=== PATIENT | female | born 1980 | race African-American/Black ===

== ENCOUNTER 2017-04-25 00:18 | Inpatient (IN) | payer OTHER ==
[~2017-04-25] VITALS: Ht 152.4 cm; Wt 112.5 kg
--- NOTE | ~2017-04-25 | CR72 ---
[facility] A Service of [facility] [place] RADIOLOGY TEXT RESULTS PATIENT: ANABEL GUILLAUME LOCATION: [place] [address]- : [birth year] UNIT #: [id number] AGE: [address]: Eben Cantrell MD SEX: F ORDER DR: [id number] [facility] [address] [facility] [place], [place] [address] [id number] I MR#: [id number] #: [id number] NAME: ANABEL GUILLAUME : 1980 SEX: F STUDY DATE/TIME: 04/26/2017 12:05 UNIT: [facility] ROOM: [facility] STUDY DESCRIPTION: CR Chest Single View Portable Attending Physician: Blake Sullivan M.D. Ordering Physician: Ash Bright M.D. Primary Care Physician: Valdemar Espinosa Aprn MEDICAL IMAGING REPORT This report is preliminary unless electronic signature is present EXAM Portable chest radiograph. INDICATIONS Chest pain, shortness of breath and weakness for 3 days. Comparison is made to prior exam which was performed yesterday. FINDINGS Cardiomegaly and vascular congestion are unchanged when compared to yesterday's studies. No pneumothorax is identified. Trace bilateral pleural effusions are suspected. Dictated by... Chante Galvan M.D. THIS IS AN ELECTRONICALLY VERIFIED REPORT Chante Galvan M.D. at 04/27/2017 5:37 PM AFF/psc TD: 04/26/2017 22:03 JOB #: [id number] MEDICAL IMAGING REPORT Page 1 of 1 COPY
--- NOTE | ~2017-04-25 | DS ---
Unit #: [id number] #: [id number] Patient: BRISA GUILLAUME [id number] [address] [address] [id number] I MR#: [id number] NAME: BRISA GUILLAUME. ROOM: 547 Age: 36 Sex: F Admission Date: 04/25/2017 : 1980 Discharge Date: Attending Physician: Eben Cantrell M.D. Primary Care Physician: Valdemar Espinosa Aprn DISCHARGE SUMMARY PRIMARY DIAGNOSIS Acute hypercapnic respiratory failure. SECONDARY DIAGNOSES 1. Diabetes mellitus type 2. 2. Pulmonary edema, mild. 3. Non ST segment elevation myocardial infarction with highest troponin elevation of 0.19. 4. Chronic obstructive pulmonary disease with possible exacerbation. 5. Hypertension. 6. Peripheral artery disease. 7. Morbid obesity. 8. Obstructive sleep apnea. 9. Bipolar disorder. 10. Hypertriglyceridemia. HOSPITAL COURSE Ms. Brisa Guillaume was admitted by the emergency room at approximately 1 a.m. on April 25, for shortness of breath. Additionally, she had a glucose of 681. She had noted that she has been chronically short of breath since having a TN and stent placement in August 2016, but it was worse. In the emergency room, she received IV Lasix and IV Solu-Medrol as well as insulin to try to get her blood sugar down. She was given a therapeutic dose of Lovenox and some nitroglycerin paste. She had a CT angiogram of her chest done which showed no pulmonary embolism. Please see the report for other findings. The patient's initial ABG in the emergency room showed a pH of 7.316, pCO2 of 49, and pO2 of 399 on 100% FIO2 on BiPAP at 10/6 and this improved to an essentially ABG on BiPAP. One and a half hours later, the patient was able to be weaned off the BiPAP and continued IV diuresis. Consultation was obtained with Dr. Evans with cardiology for the elevated troponin and the pulmonary edema. Medications were adjusted. The patient was initially in the ICU, but was able to be transferred out on the morning of the . There was listed diagnoses from physicians seeing the patient on the of an acute exacerbation of COPD, although patient did not require any steroids and she did not have any bronchospasm or wheezing on my exam when I saw her for the first time on her day of discharge. As she had not required any steroids other than the first dose in the emergency room and I could not find any wheezing at discharge, I did not feel that additional steroids were indicated. In fact, they were relatively contraindicated due to her issues with her diabetes, hyperglycemia at admission, and morbid obesity. Cardiology felt the patient's coronary artery disease should continue to be medically managed and recommended followup with her regular investigator fraud. They also recommended cardiac rehab. Unit #: [id number] #: [id number] Patient: BRISA GUILLAUME DISCHARGE DISPOSITION To home. DISCHARGE STATUS Stable. DISCHARGE ACTIVITY Ad teddy and patient is referred for home health and cardiac rehab. DISCHARGE FOLLOWUP With her regular lung doctor in one to three weeks, with her PCP in one to three weeks, and with Dr. Leonardo with cardiology on June 11 at 2 p.m. DISCHARGE MEDICATIONS 1. She is advised to resume her home inhalers and nebulizers. 2. Potassium chloride 20 mEq p.o. daily. 3. Neurontin 600 mg p.o. t.i.d. 4. Nystatin powder apply topically once daily to affected areas. 5. Lipitor 80 mg p.o. daily. 6. Amlodipine 5 mg p.o. daily. 7. Metoprolol tartrate 100 mg p.o. b.i.d. 8. Lasix 40 mg p.o. three times daily. 9. Xalatan one drop both eyes nightly. 10. Hydralazine 100 mg p.o. b.i.d. 11. Humalog 40 units subcutaneous with meals. 12. Lantus 65 units subcutaneous b.i.d. 13. Aspirin 81 mg p.o. daily. 14. Effient 10 mg p.o. daily. 15. Isosorbide dinitrate 40 mg p.o. b.i.d. Dictated by... Eben Cantrell M.D. Sandoval TD: 04/27/2017 10:58 JOB #: [id number] DISCHARGE SUMMARY Page 1 of 1 X Eben Cantrell MD X DISCHARGE SUMMARY
--- NOTE | ~2017-04-25 | CR72 ---
[facility] A Service of [facility] & [facility] RADIOLOGY TEXT RESULTS PATIENT: ANABEL GUILLAUME LOCATION: [place] [id number] : [birth year] UNIT #: [id number] AGE: [address]: Blake Sullivan MD SEX: F ORDER DR: [id number] [facility] [address] [place], [place] [address] [id number] I MR#: [id number] Acc #: [id number] NAME: ANABEL GUILLAUME : 1980 SEX: F STUDY DATE/TIME: 04/25/2017 00:31 UNIT: [facility] ROOM: [facility] STUDY DESCRIPTION: CR Chest Single View Portable Attending Physician: Blake Sullivan M.D. Ordering Physician: Graham Weathers M.D. Primary Care Physician: Valdemar Espinosa Aprn MEDICAL IMAGING REPORT This report is preliminary unless electronic signature is present EXAM Portable chest, 04/25 at 00:31 hours INDICATIONS Shortness of air and weakness for 2 days. History of asthma. FINDINGS AP portable chest is compared with 08/30/2016. There is mild cardiomegaly. There is vascular congestion and a mild degree of pulmonary edema is present as well. No pneumothorax. Dictated by... Fran Reza Jr., M.D. THIS IS AN ELECTRONICALLY VERIFIED REPORT Fran Reza Jr., M.D. at 04/25/2017 8:50 PM JOSE ENRIQUE/jeannine TD: 04/25/2017 11:29 JOB #: [id number] MEDICAL IMAGING REPORT Page 1 of 1 COPY
--- NOTE | ~2017-04-25 | BMI ---
[facility] Nutrition Therapy DATE: 04/25/17 Patient: ANABEL GUILLAUME Physician: JULES Address: [address] [place] [address] Room/Bed: [address], Zip: [place] [address] Admit Date: 04/25/17 Date of : [birth year] Height: 5 0 Weight: 255 116 HIGH BMI NOTE: ANTHROPOMETRICS: HT: 60" WT: 116 KG BMI: 49.7 DIET: CONSISTENT CARBOHYDRATE RECOMMENDATIONS: 1. ADD HEART HEALTHY RESTRICTION TO CURRENT DIET. Respectfully, MILY NORWOOD RD, LD [employer] [facility] cc: client file
--- NOTE | ~2017-04-25 | CT16 ---
[facility] A Service of [facility] & [facility] RADIOLOGY TEXT RESULTS PATIENT: ANABEL GUILLAUME LOCATION: [address] : [birth year] UNIT #: [id number] AGE: [address]: Blake Sullivan MD SEX: F ORDER DR: [id number] [facility] [address] [place], [place] [address] [id number] I MR#: [id number] Acc #: [id number] NAME: ANABEL GUILLAUME : 1980 SEX: F STUDY DATE/TIME: 04/25/2017 03:19 UNIT: [facility] ROOM: [facility] STUDY DESCRIPTION: CT Angio Chest for PE Attending Physician: Blake Sullivan M.D. Ordering Physician: Graham Weathers M.D. Primary Care Physician: Valdemar Espinosa Aprn MEDICAL IMAGING REPORT This report is preliminary unless electronic signature is present EXAM Chest CTA, 04/25 at 03:19 INDICATION Shortness of air that started yesterday morning with chest pain. Prior history of myocardial infarction. TECHNIQUE Axial images were obtained through the chest following IV contrast administration. 3-D reformats were obtained. This CT exam was performed with one or more of the following radiation dose reduction techniques: automatic exposure control, adjustment of mA and/or kV according to patient size, and iterative reconstruction. COMPARISON Comparison is made 08/30/2016. FINDINGS No pulmonary embolism or aortic dissection is seen. Small bilateral pleural effusions are seen, right greater than left. Both of these have enlarged since the prior CT. No pericardial effusion is seen. Again seen is mediastinal and hilar adenopathy. Azygoesophageal recess adenopathy measures up to 1.9 cm short axis. This is not significantly changed. Right hilar adenopathy measures about 1.5 cm. It is also not significantly changed. Right paratracheal adenopathy measures about 3.6 x 2.2 cm which is also not significantly changed. AP window adenopathy measures 2.8 x 1.6 cm which is unchanged. Other prominent lymph nodes are essentially stable as well. No axillary adenopathy is seen. Left hilar adenopathy is 9.0 mm short axis, also stable. Lung windows demonstrate septal thickening and ground-glass opacities compatible with pulmonary edema. More confluent consolidation noted in the right lower lobe and to a lesser degree in the left lower lobe and right middle lobe. Some of STS. [facility] A Service of [facility] & [facility] RADIOLOGY TEXT RESULTS PATIENT: ANABEL GUILLAUME LOCATION: [address] : [birth year] UNIT #: [id number] AGE: [address]: Blake Sullivan MD SEX: F ORDER DR: this may be due to atelectasis but pneumonia is certainly not excluded. These findings are present to some degree on the prior study but have worsened, particularly in the lower lobes. Upper abdomen shows focal areas of fatty infiltration in the left lobe of the liver, in addition to generalized hepatic steatosis. IMPRESSION 1. No pulmonary embolism or aortic dissection. 2. Small bilateral pleural effusions, worse since the prior exam. 3. Relatively stable mediastinal and bilateral hilar adenopathy as above. This is nonspecific. Relative stability would suggest a benign process. Considerations include sarcoidosis. While metastatic disease and lymphoma are in the differential diagnosis, this is felt to be less likely. 4. Pulmonary edema. Scattered areas of more confluent alveolar consolidation noted in the lower lobes and right middle lobe. These have increased since the prior CT in August 2016. A large part of this may simply be due to atelectasis. Pneumonia is not excluded, particularly in the lower lobes. 5. Areas of focal fatty infiltration in the left hepatic lobe with generalized hepatic steatosis. Dictated by... Fran Reza Jr., M.D. THIS IS AN ELECTRONICALLY VERIFIED REPORT Fran Reza Jr., M.D. at 04/25/2017 8:51 PM JOSE ENRIQUE/jeannine TD: 04/25/2017 12:28 JOB #: [id number] MEDICAL IMAGING REPORT Page 1 of 1 COPY
--- NOTE | ~2017-04-25 | CO ---
Unit #: [id number] #: [id number] Patient: ANABEL GUILLAUME [id number] [facility]. [address] [place], [place] [address] [id number] I MR#: [id number] NAME: ANABEL GUILLAUME. ROOM: [facility] Age: 36 Sex: F Admission Date: 04/25/2017 : 1980 Attending Physician: Blake Sullivan M.D. Primary Care Physician: aVldemar Espinosa Aprn CONSULTATION REPORT PRIMARY CARE PHYSICIAN Valdemar Esipnosa APRN REASON FOR CONSULTATION Elevated troponin. HISTORY OF PRESENT ILLNESS This is a 36-year-old white female, who is known to Dr. Leonardo, who had a non-ST elevation myocardial infarction in 08/2016, where she was found to have a circumflex artery with 90% stenosis, who underwent PCI with drug-eluting stent placement. She has been on aspirin and Effient since. She is known to have hypertension, hyperlipidemia, diabetes, obesity, and family history of premature coronary artery disease as risk factors for ischemic heart disease. The patient states she has been short of breath since her myocardial infarction in August. She has noted some lower extremity edema and weight gain. She went to see her primary care physician and her home dose of furosemide was increased to t.i.d. She says dyspnea occurs mostly on exertion when just walking to her bathroom, that is in her room. She denies any symptoms of angina. She recently has been seen by a scroll shear operator and was started on Breo. Yesterday, while walking to the bathroom, her dyspnea worsened. Afterwards, she said she fell over, but denied any loss of consciousness. She came to the emergency room for evaluation, where she was noted to have a troponin level of 0.57. Her electrocardiogram showed no acute ischemic changes. Chest x-ray noted for vascular congestion and pulmonary edema. BNP 62. She has also had an elevated glucose level of 681. Blood pressure was uncontrolled at 202/126 mmHg. She has been started on a nitroglycerin drip. PAST MEDICAL HISTORY 1. Non-ST elevation myocardial infarction status post cardiac catheterization on 08/31/[address]ares at [facility] that revealed left main normal. LAD normal. Circumflex artery proximal to mid diffuse stenosis up to 90%. Right coronary artery dominant vessel with mid diffuse stenosis of 40% to 45%. 2. Status post PCI with drug-eluting stent to the proximal and mid left circumflex artery on 08/31/2016. 3. 2D echocardiogram on 08/31/2016 shows normal left ventricular systolic function with mild tricuspid regurgitation. 4. Hypertension. 5. Hyperlipidemia. Unit #: [id number] #: [id number] Patient: ANABEL GUILLAUME 6. Diabetes mellitus type 1. 7. Peripheral vascular disease status post right iliac stent, followed by Dr. Herrera. 8. Asthma. 9. Bipolar disorder. 10. Obesity. 11. Obstructive sleep apnea, wears CPAP. 12. Former smoker. PAST SURGICAL HISTORY Abscess I and D. SOCIAL HISTORY The patient is . She is not employed. She was a heavy smoker, smokes up to 2 packs of cigarettes daily since age 13, but quit 2-1/2 years ago. She denies illicit drug or alcohol use. Lives a sedentary lifestyle. FAMILY HISTORY Mother in her 50s from lung cancer, but had myocardial infarction in the 40s. ALLERGIES Penicillin. HOME MEDICATIONS 1. Furosemide 40 mg t.i.d. 2. Gabapentin 600 mg t.i.d. 3. Amlodipine 5 mg daily. 4. Metoprolol tartrate 100 mg b.i.d. 5. Atorvastatin 80 mg daily. 6. Effient 10 mg daily. 7. Latanoprost 0.005% one drop to both eyes at bedtime. 8. Aspirin 81 mg daily. 9. Lantus 65 units b.i.d. 10. Humalog 40 units subcutaneous t.i.d. with meals. REVIEW OF SYSTEMS CONSTITUTIONAL: Negative for fever or chills. Has report of recent weight gain. No weight loss. HEENT: No headache. No vision changes or difficulty with swallowing. Has occasional dizziness. CARDIOVASCULAR: Has no symptoms of angina. Denies palpitations. No paroxysmal nocturnal dyspnea or orthopnea. Denies syncope or near syncope. RESPIRATORY: Positive for dyspnea at rest, it is worse on exertion. Denies cough or hemoptysis. GASTROINTESTINAL: No abdominal pain, nausea, or vomiting. No constipation. No melena. EXTREMITIES: Negative for lower extremity edema. PHYSICAL EXAMINATION VITAL SIGNS: Blood pressure is 199/83, heart rate 102, temperature 98.6. BMI of 49. GENERAL: This is a morbidly obese, 36-year-old, young female, who is in no acute respiratory distress. NEUROLOGIC: She is awake, alert, and oriented. There are no focal weaknesses. NECK: Trachea is midline. No thyromegaly. No lymphadenopathy. No Unit #: [id number] #: [id number] Patient: ANABEL GUILLAUME jugular venous distention. HEART: S1 and S2. Heart sounds are normal. No murmurs. No rubs or clicks. Regular rate and rhythm. LUNGS: Diminished breath sounds with expiratory wheezes at both lung bases. ABDOMEN: Soft and obese with bowel sounds present. No obvious organomegaly. Nontender. EXTREMITIES: Pedal pulses are absent with 1+ leg edema. SKIN: Warm and dry. DIAGNOSTIC STUDIES LABORATORY RESULTS: Glucose 530, BUN 19, creatinine 0.9, sodium 132, potassium 4.1. Magnesium 1.9, AST 50, ALT 72. CK total of 75, MB 12.8, MB index 7.3, troponin is 0.57, 0.38, 0.19. BNP 22. Hemoglobin A1c 12.1. Cholesterol 172, triglycerides 359, LDL 74, HDL 26. Beta hCG negative. White count 9.6, hemoglobin 13.2, hematocrit 42.7, and platelet count is 363. IMAGING STUDIES: Chest x-ray shows mild pulmonary edema with mild cardiomegaly. CARDIOVASCULAR STUDIES: Electrocardiogram, sinus tachycardia with a rate of 102 beats per minute with nonspecific ST wave abnormalities. Low-voltage QRS. IMPRESSION 1. Acute hypercapnic respiratory failure. 2. Acute chronic obstructive pulmonary disease exacerbation. 3. Acute non-ST elevation myocardial infarction. 4. Uncontrolled hypertension. 5. Uncontrolled diabetes mellitus type 2. 6. History of non-ST elevation myocardial infarction in 08/2016 status post percutaneous coronary intervention with stent to the proximal to mid circumflex artery. 7. Pulmonary edema, most likely secondary to non-ST elevation myocardial infarction. 8. Severe peripheral artery disease with history of right iliac stent. 9. Morbid obesity. 10. Obstructive sleep apnea. PLAN 1. Cardiology was consulted for elevated troponin. The troponin elevation is most likely from non-ST elevation myocardial infarction, given the patient's history and exertional dyspnea. 2. Dyspnea may be secondary to COPD exacerbation. 3. We will increase the dose of diuretics intravenously for fluid removal. 4. Control blood pressure with addition of hydralazine and Isordil. 5. Continue beta-will, statin, and dual antiplatelet therapy with aspirin and Plavix. 6. Wean off nitroglycerin drip as blood pressure tolerates. 7. We will follow the patient with you. Thank you for allowing us to assist with this patient's care. Dictated by... Milan Nath A.P.R.N. [facility] Unit #: [id number] #: [id number] Patient: ANABEL GUILLAUME TD: 04/26/2017 05:14 JOB #: [id number] CC: Marc Leonardo M.D. CONSULTATION REPORT Page 1 of 1 X Milan Nath DIRECTOR [employer] X CONSULTATION REPORT
--- NOTE | ~2017-04-25 | HP ---
Unit #: [id number] #: [id number] Patient: ANABEL GUILLAUME [id number] [address] [address] [id number] I MR#: [id number] NAME: ANABEL GUILLAUME. ROOM: [facility] Age: 36 Sex: F Admission Date: 04/25/2017 : 1980 Attending Physician: Blake Sullivan M.D. Primary Care Physician: Valdemar Espinosa Aprn HISTORY AND PHYSICAL HISTORY OF PRESENT ILLNESS This is a pleasant, 36-year-old female with a history of type 2 diabetes mellitus, morbid obesity, coronary artery disease, status post stent placements in the past, obstructive sleep apnea on CPAP, peripheral vascular disease, history of bilateral iliac stent placement, hypertension, hyperlipidemia, former smoker, and bipolar disorder who presented the emergency room for the increasing shortness of air over the last 1-2 weeks, which has gradually been getting worse. She does report to have the paroxysmal nocturnal dyspnea, as well as the exertional dyspnea. In the emergency room, she was evaluated. She is being admitted for possible non-ST segment elevation KS and congestive heart failure. Her blood sugar is above 600 on her labs. MEDICAL HISTORY Type 2 diabetes mellitus, coronary artery disease, persistent obstructive sleep apnea, hypertension, hyperlipidemia, morbid obesity, bipolar disorder, insulin dependence, and former smoker. PAST SURGICAL HISTORY Multiple abscess I and Ds, stent placement, and history of cardiac cath. ALLERGIES To penicillin. SOCIAL HISTORY Lives at home. Declines any alcohol. History of tobacco use for several years, quit three years ago. HOME MEDICATIONS 1. Lantus 65 units twice daily. 2. NovoLog 40 units each meal. 3. Lisinopril. 4. Atorvastatin. 5. Normodyne. 6. Plavix. 7. Aspirin. 8. Neurontin. 9. Furosemide. REVIEW OF SYSTEMS Twelve-point review of systems is completed and remarkable for . Please see HPI. Rest of the review of systems unremarkable. PHYSICAL EXAMINATION Unit #: [id number] #: [id number] Patient: ANABEL GUILLAUME GENERAL APPEARANCE: She is morbidly obese and mildly short of air. VITAL SIGNS: She weighs 113 kg. Temperature 98.6, pulse 102, and blood pressure 199/83. HEENT: EOMI. Pupils are equal and reactive to light. NECK: Supple. CHEST: Decreased air entry bilaterally. CVS: Regular rhythm. Tachycardic. No murmurs. ABDOMEN: Obese and nontender. Bowel sounds positive. No guarding or rigidity noted. EXTREMITIES: Mild edema, 1+ edema noted. No ulcers. No amputations. DIAGNOSTIC STUDIES LABORATORY: Glucose 530, sodium 132, chloride 98, CO2 is 24, albumin is 2.7. A1c is not available. Troponins are not available. ASSESSMENT 1. Non-ST segment elevation KS. 2. Coronary artery disease, status post a stent. 3. Type 2 diabetes mellitus, uncontrolled with blood glucoses of 500. 4. Obstructive sleep apnea. 5. Morbid obesity. 6. Hypertension. PLAN Patient's is already evaluated per cardiology. She has been started on the Lasix 60 mg IV twice daily, hydralazine 50 mg p.o. q.6, Isordil 40 mg p.o. b.i.d. She will be tapered off the nitro drip. Amlodipine 5 mg twice daily. Metoprolol. Will start insulin drip. Lovenox for DVT prophylaxis. Monitor blood sugars hourly. Monitor electrolytes and replace as needed. Dictated by Petra Lamar/lux TD: 04/25/2017 09:26 JOB #: [id number] HISTORY AND PHYSICAL Page 1 of 1 X Aminata Cam MD HISTORY AND PHYSICAL
--- NOTE | ~2017-04-25 | EKG ---
PATIENT: ANABEL GUILLAUME UNIT #: [id number] Ventricular Rate: 84 BPM Atrial Rate: 84 BPM P-R Interval: 152 ms QRS Duration: 74 ms Q-T Interval: 400 ms QTC Calculation(Bezet): 472 ms P Brinkley: 73 degrees Calculated R [place]: 91 degrees Calculated T Brink[place]: -64 degrees Diagnosis Line: Normal sinus rhythm Diagnosis Line: Rightward axis Diagnosis Line: Nonspecific T wave abnormality Diagnosis Line: Prolonged QT Diagnosis Line: Abnormal ECG Diagnosis Line: When compared with ECG of 25-APR-2017 01:20, Diagnosis Line: (unconfirmed) Diagnosis Line: Nonspecific T wave abnormality now evident in Diagnosis Line: Inferior leads Diagnosis Line: Confirmed by ODALYS HANSON MD ([id number]) on Diagnosis Line: 04/27/2017 8:19:54 PM INTERPRETING MD: HAYDEE
--- NOTE | ~2017-04-25 | EKG ---
PATIENT: ANBAEL GUILLAUME UNIT #: [id number] Ventricular Rate: 92 BPM Atrial Rate: 92 BPM P-R Interval: 144 ms QRS Duration: 72 ms Q-T Interval: 372 ms QTC Calculation(Bezet): 460 ms P [place]: 69 degrees Calculated R [place]: 88 degrees Calculated T [place]: -36 degrees Diagnosis Line: Normal sinus rhythm Diagnosis Line: Abnormal QRS-T angle, consider primary T wave Diagnosis Line: abnormality Diagnosis Line: Abnormal ECG Diagnosis Line: When compared with ECG of 26-APR-2017 07:46, Diagnosis Line: (unconfirmed) Diagnosis Line: No significant change was found Diagnosis Line: Confirmed by ODALYS HANSON MD ([id number]) on Diagnosis Line: 04/27/2017 8:23:57 PM INTERPRETING MD: HAYDEE
--- NOTE | ~2017-04-25 | EKG ---
PATIENT: ANABEL GUILLAUME UNIT #: [id number] Ventricular Rate: 102 BPM Atrial Rate: 102 BPM P-R Interval: 140 ms QRS Duration: 72 ms Q-T Interval: 368 ms QTC Calculation(Bezet): 479 ms P [place]: 65 degrees Calculated R [place]: 72 degrees Calculated T [place]: 137 degrees Diagnosis Line: Sinus tachycardia Diagnosis Line: Abnormal QRS-T angle, consider primary T wave Diagnosis Line: abnormality Diagnosis Line: Abnormal ECG Diagnosis Line: When compared with ECG of 07-SEP-2013 22:19, Diagnosis Line: Nonspecific T wave abnormality now evident in Diagnosis Line: Lateral leads Diagnosis Line: QT has lengthened Diagnosis Line: Confirmed by ODALYS HANSON MD ([id number]) on Diagnosis Line: 04/27/2017 8:05:56 PM INTERPRETING MD: HAYDEE
[~2017-04-25 00:18] MED LIST: ACCUPRIL PO; ALBUTEROL17 GM INH; ASPIRIN81 M2 PO; ASPIRIN81 MG PO; ATORVASTATIN CA10 MG PO; BACTRIM DS TABL1 TA1 PO; BENADRYL25 MG PO; BUPROPION HCL150 M1 PO; CLOTRIMAZOLE15 GM TOP; FUROSEMIDE40 MG PO; GABAPENTIN300 M2 PO; LAMICTAL25 MG PO; LANTUS SOLOSTAR3 ML SQ; LIPITOR PO; LIPITOR40 MG PO; LISINOPRIL20 MG PO; LORTAB 5/500 TA1 TA1 PO; NEURONTIN300 MG PO; NORMODYNE100 M1 PO; NOVOLOG FL100 UNIT/1 SQ; NOVOLOG100 U/ML SQ; NOVOLOG7030 SUBQ; PHENERGAN W/CO120 ML PO; PLAVIX PO; PRENATAL1 TA1 PO; VITAMIN B12-FO1 EACH PO; WELLBUTRIN PO; ZITHROMAX500 MG PO
[2017-04-25 00:43] LABS: ARTERIAL BLD GAS O2 SATURATION 98.6 % (90.0-100.0); ARTERIAL BLOOD GAS CARBOXY HB 1.3 %sat (0.0-9.0); ARTERIAL BLOOD GAS HCO3 25.1 mmol/L; ARTERIAL BLOOD GAS MET HB 0.7 %sat (0.0-2.0); ARTERIAL BLOOD GAS PCO2 49.1 mmHg (35.0-45.0); ARTERIAL BLOOD GAS pH 7.316 (7.350-7.450)
[2017-04-25 00:44] LABS: ARTERIAL BLOOD GAS ALLEN TEST NORMAL; ARTERIAL BLOOD GAS ART SITE LEFT RADIAL; ARTERIAL DRAW? YES
[2017-04-25 01:27] LABS: URINE SOURCE CLEAN CATCH
[2017-04-25 01:30] LABS: INR 0.9; PARTIAL THROMBOPLASTIN TIME 31.6 SECONDS (23.5-31.3); PROTHROMBIN TIME (PATIENT) 10.3 SECONDS (10.0-11.7)
[2017-04-25 01:34] LABS: URINE APPEARANCE CLEAR; URINE BILIRUBIN NEG (NEG); URINE BLOOD 2+ (NEG); URINE COLOR YELLOW; URINE GLUCOSE >1000 MG/DL (NEG); URINE KETONE NEG (NEG); URINE LEUKOCYTE ESTERASE NEG (NEG); URINE NITRATE NEG (NEG); URINE PROTEIN 3+ (NEG); URINE SPECIFIC GRAVITY 1.022 (1.003-1.035); URINE UROBILINOGEN 0.2 MG/DL (NEG)
[2017-04-25 01:37] LABS: URINE BACTERIA AUWI NEG (NEGATIVE); URINE SQUAMOUS EPITHELIAL CELL OCC /[HPF]; UWBCS1 AUWI 0-2 (0-5)
[2017-04-25 01:42] LABS: ALBUMIN SERUM 2.7 g/dL (3.5-5.0); BILIRUBIN, DIRECT 0.1 mg/dL (0.0-0.2); BILIRUBIN,INDIRECT 0.9 mg/dL (0.0-0.9); BUN/CREATININE RATIO 16.36; CALCIUM SERUM 8.3 mg/dL (8.4-10.2); CREATININE SERUM 1.1 mg/dL (0.6-1.4); GLOM FILT RATE Estimated 75.9 mL/min (>60); PROTEIN TOTAL SERUM 7.5 g/dL (6.0-8.3)
[2017-04-25 01:43] LABS: AMPHETAMINE NEG (NEG); BARBITURATES NEG (NEG); BENZODIAZEPINES NEG (NEG); COCAINE NEG (NEG); MARIJUANA NEG (NEG); OPIATES NEG (NEG); TRICYCLIC ANTIDEPRESSANTS NEG (NEG); U METHADONE NEG (NEG)
[2017-04-25 01:47] LABS: BASOPHIL# 0.1 X10e3 (0-0.3); BASOPHIL% 0.6 % (0-2.5); DIFF IND NO; EOSINOPHIL# 0.4 X10e3 (0-0.7); EOSINOPHIL% 4.2 % (0.0-7.0); HEMATOCRIT 42.7 % (35.0-45.0); HEMOGLOBIN 13.2 gm/dL (12.0-16.0); LYMPHOCYTE# 2.1 X10e3 (1.0-3.5); MEAN CELL VOLUME 83.5 FL (83-96); MEAN CORPUSCULAR HEMOGLOBIN 25.8 PG (28-34); MEAN CORPUSCULAR HGB CONC 30.9 g/dL (30-36); MEAN PLATELET VOLUME 8.2 FL (6.5-11.5); MONOCYTE# 0.5 X10e3 (0-1.0); MONOCYTE% 4.9 % (3.0-12.0); NEUTROPHIL# 6.5 X10e3 (1.5-7.1); NEUTROPHIL% 68.3 % (40-75); PLATELET COUNT 363 X10e3 (140-420); RED BLOOD COUNT 5.12 X10e (3.90-5.30); RED CELL DISTRIBUTION WIDTH 17.2 % (11.0-15.5); WHITE BLOOD COUNT 9.6 X10e3 (4.0-10.5)
[2017-04-25 01:54] LABS: CULTURE INDICATED? NO
[2017-04-25 02:07] LABS: ARTERIAL BLD GAS O2 SATURATION 96.7 % (90.0-100.0); ARTERIAL BLOOD GAS CARBOXY HB 1.5 %sat (0.0-9.0); ARTERIAL BLOOD GAS MET HB 0.6 %sat (0.0-2.0); ARTERIAL BLOOD GAS pH 7.386 (7.350-7.450)
[2017-04-25 02:08] LABS: ARTERIAL BLOOD GAS ALLEN TEST NORMAL; ARTERIAL BLOOD GAS ART SITE LEFT RADIAL; ARTERIAL DRAW? YES
[2017-04-25 02:14] LABS: POC - CKMB 47.6 ng/mL (0.0-7.9); POC - TROPONIN 0.57 ng/mL (<=0.05)
[2017-04-25 02:54] LABS: POC - TROPONIN 0.38 ng/mL (<=0.05)
[2017-04-25 08:16] LABS: BUN/CREATININE RATIO 21.11; CALCIUM SERUM 8.5 mg/dL (8.4-10.2); CREATININE SERUM 0.9 mg/dL (0.6-1.4); GLOM FILT RATE Estimated 96.8 mL/min (>60); POTASSIUM 4.1 mmol/L (3.5-5.1)
[2017-04-25 10:33] LABS: %MB 7.3 % (0.0-4.0); MB 12.8 ng/ml
[2017-04-25 10:49] LABS: CHOLESTEROL 172 mg/dL (0-200); HDL CHOLESTEROL 26 mg/dL (35-95); LDL CHOLESTEROL 74 mg/dL ([, -130]); LDL/HDL RATIO 3 RATIO (0-4); TRIGLYCERIDES 359 mg/dL (10-160)
[2017-04-25 15:39] LABS: %MB 7.7 % (0.0-4.0); MB 10.3 ng/ml
[2017-04-26] MEDS ORDERED: FUROSEMIDE40 MG PO (03:59)
[2017-04-26] MEDS ORDERED: NEURONTIN600 MG PO (04:00)
[2017-04-26] MEDS ORDERED: AMLODIPINE BESYL5 MG PO (04:01)
[2017-04-26] MEDS ORDERED: METOPROLOL TAR100 MG PO (04:02)
[2017-04-26] MEDS ORDERED: LIPITOR80 MG PO (04:02)
[2017-04-26] MEDS ORDERED: EFFIENT10 MG PO (04:03)
[2017-04-26] MEDS ORDERED: ASPIRIN EC81 M1 PO (04:04)
[2017-04-26] MEDS ORDERED: XALATAN OU (04:04)
[2017-04-26] MEDS ORDERED: LANTUS100 U/ML SUBQ (04:05)
[2017-04-26] MEDS ORDERED: HUMALOG100 UNIT/1 SUBQ (04:06)
[2017-04-26 06:16] LABS: BASOPHIL# 0.1 X10e3 (0-0.3); BASOPHIL% 0.6 % (0-2.5); EOSINOPHIL# 0.1 X10e3 (0-0.7); EOSINOPHIL% 0.4 % (0.0-7.0); HEMATOCRIT 36.1 % (35.0-45.0); HEMOGLOBIN 11.4 gm/dL (12.0-16.0); LYMPHOCYTE# 3.4 X10e3 (1.0-3.5); MEAN CELL VOLUME 80.6 FL (83-96); MEAN CORPUSCULAR HEMOGLOBIN 25.4 PG (28-34); MEAN CORPUSCULAR HGB CONC 31.5 g/dL (30-36); MEAN PLATELET VOLUME 8.1 FL (6.5-11.5); MONOCYTE# 1.3 X10e3 (0-1.0); MONOCYTE% 6.8 % (3.0-12.0); NEUTROPHIL# 14.2 X10e3 (1.5-7.1); NEUTROPHIL% 74.2 % (40-75); PLATELET COUNT 346 X10e3 (140-420); RED BLOOD COUNT 4.48 X10e (3.90-5.30)
[2017-04-26 06:17] LABS: DIFF IND YES; WHITE BLOOD COUNT 19.2 X10e3 (4.0-10.5)
[2017-04-26 07:06] LABS: ALBUMIN SERUM 2.2 g/dL (3.5-5.0); BILIRUBIN, DIRECT 0.1 mg/dL (0.0-0.2); BILIRUBIN,TOTAL 0.3 mg/dL (0.2-2.0); BUN/CREATININE RATIO 19.09; CALCIUM SERUM 8.2 mg/dL (8.4-10.2); CREATININE SERUM 1.1 mg/dL (0.6-1.4); GLOM FILT RATE Estimated 75.9 mL/min (>60); MAGNESIUM 2.2 mg/dL (1.6-3.0); POTASSIUM 3.3 mmol/L (3.5-5.1); PROTEIN TOTAL SERUM 6.4 g/dL (6.0-8.3)
[2017-04-26 07:13] LABS: ANISOCYTOSIS SL; PLATELET ESTIMATE NORMAL (NORMAL)
[2017-04-27 06:08] LABS: CREATININE SERUM 1.1 mg/dL (0.6-1.4); GLOM FILT RATE Estimated 75.9 mL/min (>60); MAGNESIUM 1.9 mg/dL (1.6-3.0); POTASSIUM 3.5 mmol/L (3.5-5.1)
[2017-04-27] MEDS ORDERED: K-DUR20 ME2 PO (12:01)
[2017-04-27] MEDS ORDERED: ISORDIL40 MG PO (12:02)
[2017-04-27] MEDS ORDERED: NYSTATIN1 EACH MC (12:02)
[2017-04-27] MEDS ORDERED: HYDRALAZINE HC100 MG PO (12:02)
== END 2017-04-27 15:01 | disposition home health service (06) | DRG 280 ==
LOC: CED 00:18 → CEDOF 04:05 → CICCU3 05:35 → C5B 04-26 16:06
PROVIDERS: Emergency Medicine; Internal Medicine; Internal Medicine Cardiovascular Disease; Internal Medicine Endocrinology, Diabetes & Metabolism
PROC: B32SYZZ Computerized Tomography (CT Scan) of Right Pulmonary Artery using Other Contrast (ICD-10-PCS; principal; 2017-04-25)
PROC: B32TYZZ Computerized Tomography (CT Scan) of Left Pulmonary Artery using Other Contrast (ICD-10-PCS; 2017-04-25)
DX: I21.4 Non-ST elevation (NSTEMI) myocardial infarction (principal); J96.02 Acute respiratory failure with hypercapnia; E66.01 Morbid (severe) obesity due to excess calories; E11.65 Type 2 diabetes mellitus with hyperglycemia; I07.1 Rheumatic tricuspid insufficiency; I11.0 Hypertensive heart disease with heart failure; I50.1 Left ventricular failure, unspecified; J44.1 Chronic obstructive pulmonary disease with (acute) exacerbation; I25.10 Atherosclerotic heart disease of native coronary artery without angina pectoris; G47.33 Obstructive sleep apnea (adult) (pediatric); E78.5 Hyperlipidemia, unspecified; F31.9 Bipolar disorder, unspecified; Z79.4 Long term (current) use of insulin; Z87.891 Personal history of nicotine dependence; Z88.0 Allergy status to penicillin; Z79.82 Long term (current) use of aspirin; Z68.39 Body mass index [BMI] 39.0-39.9, adult; E78.1 Pure hyperglyceridemia
CPT/HCPCS: 36415; 36600; 71010; 71275; 80048; 80053; 80061; 80076; 80307; 81003; 82010; 82248; 82550; 82553; 82803; 82947; 83036; 83735; 83880; 84132; 84484; 84703; 85025; 85610; 85730; 93005; 94640; 94660; 94760; 96372; 96374; 96375; 99291; C9113; J1650; J1815; J1940; J2270; J2930; J3475; Q9967

== ENCOUNTER → 2017-05-22 | Outpatient (CLI) | payer OTHER ==
[~2017-05-22] MED LIST changes: +AMLODIPINE BESYL5 MG PO; +ASPIRIN EC81 M1 PO; +EFFIENT10 MG PO; +HUMALOG100 UNIT/1 SUBQ; +HYDRALAZINE HC100 MG PO; +ISORDIL40 MG PO; +K-DUR20 ME2 PO; +LANTUS100 U/ML SUBQ; +LIPITOR80 MG PO; +METOPROLOL TAR100 MG PO; +NEURONTIN600 MG PO; +NYSTATIN1 EACH MC; +XALATAN OU
--- NOTE | ~2017-05-22 | CT57 ---
[facility] A Service of [facility] RADIOLOGY TEXT RESULTS PATIENT: ANABEL GUILLAUME LOCATION: [facility] : 84 UNIT #: [id number] AGE: [address]: Keeley De La Fuente SEX: F ORDER DR: [id number] [facility] [address] [place], [place] [address] [id number] O MR#: [id number] [facility] #: [id number] NAME: ANABEL GUILLAUME : 1980 SEX: F STUDY DATE/TIME: 05/22/2017 9:34 UNIT: [facility] ROOM: STUDY DESCRIPTION: CT Chest Wo Cont Attending Physician: Keeley De La Fuente A.P.R.N. Referring Physician: Keeley De La Fuente A.P.R.N. Ordering Physician: Keeley De La Fuente A.P.R.N. Primary Care Physician: Valdemar Espinosa Aprn MEDICAL IMAGING REPORT This report is preliminary unless electronic signature is present EXAM CT chest without contrast high-resolution protocol INDICATIONS Shortness of air since last year, progressively worsening. TECHNIQUE Unenhanced CT of the chest utilizing high-resolution technique. This CT exam was performed with one or more of the following radiation dose reduction techniques: automatic exposure control, adjustment of mA and/or kV according to patient size, and iterative reconstruction. COMPARISON 04/25/2017. FINDINGS There is some persistent, somewhat patchy opacity in the right middle lobe. This is very similar to the previous study. There is an area of linear scarring in the right lower lobe and posterolateral left upper lobe. There is no new dense consolidation. No significant subpleural interstitial thickening or evidence for honeycombing. No bronchiectasis. There are scattered areas of air trapping throughout both lungs on excretory images. There is no pleural fluid or pneumothorax. Adenopathy in the mediastinum is similar. An upper right paratracheal node measures up to 2.6 cm. No acute findings are seen in the included upper abdomen. There are areas of focal fat infiltration in the liver, and unchanged from the previous study. No aggressive appearing bone lesion. IMPRESSION 1. Area of somewhat linear but patchy opacity in the right middle lobe, STS. [facility] A Service of [facility] RADIOLOGY TEXT RESULTS PATIENT: ANABEL GUILLAUME LOCATION: [facility] : 84 UNIT #: [id number] AGE: [address]: Keeley De La Fuente SEX: F ORDER DR: similar to the previous study. This may represent chronic atelectasis or chronic infectious or inflammatory change. 2. No new dense consolidation. No evidence for significant pulmonary fibrosis. 3. Scattered areas of air trapping in both lungs. 4. Stable mediastinal lymphadenopathy. Dictated by... Alfie Kamara M.D. THIS IS AN ELECTRONICALLY VERIFIED REPORT Alfie Kamara M.D. at 05/25/2017 8:51 AM FUENTES/pretty TD: 05/22/2017 16:53 JOB #: [id number] MEDICAL IMAGING REPORT Page 1 of 1 COPY
== END | disposition home or self-care (01) ==
LOC: CNIV 09:01 → CCAT 09:01 → CNIV 09-14 09:00
DX: R06.00 Dyspnea, unspecified (principal); R91.8 Other nonspecific abnormal finding of lung field; R59.0 Localized enlarged lymph nodes
CPT/HCPCS: 71250